=== PATIENT | female | born 2000 | race Caucasian/White ===

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

== ENCOUNTER → 2020-10-19 10:26 | Outpatient (CLI) | payer BC, SELFPAY ==
--- NOTE | 2020-10-19 10:41 | XR_ITS ---
PROCEDURE: XR THORACIC SPINE 2V CLINICAL INDICATION: PAIN THORACIC SPINE COMPARISON: No exams were available for comparison FINDINGS: No fracture or dislocation. No lytic or blastic change. There is normal mineralization. The joint spaces are well-preserved. No significant degenerative/arthritic changes. No erosive changes evident. Other findings:There is mild thoracolumbar scoliosis convex right as seen on the scoliosis series which is performed upright. The scoliosis is not as evident on this series as this exam is not performed upright. IMPRESSION: No acute finding. Minimal thoracic scoliosis convex right as seen on the thoracic spine series. Dictated by: Dilshad Medina MD 10/21/2020 05:45 Dilshad Medina MD in [place] 10/21/2020 05:45
--- NOTE | 2020-10-19 10:41 | XR_ITS ---
PROCEDURE: XR SCOLIOSIS SURVEY CLINICAL INDICATION: PAIN IN THORACIC SPINE COMPARISON: No exams were available for comparison FINDINGS: There is a mild thoracolumbar scoliosis convex right measuring 8 degrees by the Soto technique. There is spina bifida occulta of S1. No other congenital spinal anomalies are evident. IMPRESSION: Mild dextroscoliosis thoracolumbar spine Dictated by: Dilshad Medina MD 10/21/2020 05:43 Dilshad Medina MD in [place] 10/21/2020 05:43
== END ==
PROVIDERS: PCP Internal Medicine Adolescent Medicine; Referring Provider Internal Medicine Adolescent Medicine; Visit Provider Internal Medicine Adolescent Medicine
DX: M54.6 Pain in thoracic spine (principal)
CPT/HCPCS: 72070; 72081